=== PATIENT | male | born 1985 | race Caucasian/White ===

== ENCOUNTER 2017-08-17 07:44 | Emergency (ER) | payer SELFPAY ==
[~2017-08-17] VITALS: Ht 170.2 cm; Wt 72.5 kg
[2017-08-17 07:53] VITALS: BP 151/81; PULSE 90; RESP 18; TEMP 98; O2SAT 98
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
== END 2017-08-17 10:44 | disposition home or self-care (01) ==
LOC: NEPD 07:44
DX: M54.5 Low back pain (principal); M79.671 Pain in right foot; M79.672 Pain in left foot; Z72.0 Tobacco use; W19.XXXA Unspecified fall, initial encounter
CPT/HCPCS: 72100; 99283

== ENCOUNTER 2017-08-18 01:06 | Emergency (ER) | payer SELFPAY ==
[~2017-08-18] VITALS: Ht 175.3 cm; Wt 75.0 kg
[2017-08-18 01:08] VITALS: BP 108/81; PULSE 112; RESP 14; TEMP 98.4; O2SAT 91
[2017-08-18] MEDS ORDERED: SODIUM CHLOR 0.9% 1000 ML INJ 1,000 ML IV ONE ×2 (01:08→01:38)
--- NOTE | 2017-08-18 01:14 | PD ---
HPI Chief Complaint: OD/ Ingestion Time Seen by Provider: 01:07 Travel History International Travel<30 days: No Contact w/Intl Traveler<30days: No Traveled to known affect area: No History of Present Illness HPI The patient is a 31-year-old male who presents to the emergency department via EMS after a possible overdose in the restroom of a convenience store. According to EMS the patient was found unconscious on the bathroom floor of a convenience store. The patient was administered 4 mg of Narcan intranasally by police prior to EMS arrival. When EMS arrived they stated the patient was somewhat awake, but would not answer questions or follow commands. Upon arrival the patient is spontaneously breathing, does moan, repetitively states that he is cold, but refuses to answer questions in regards to events prior to arrival. He would not answer questions in regards to possible drug use prior to arrival. EMS does state that the patient's blood sugar prior to arrival was 400, upon arrival was 375. The patient denies any complaints but is a support and somewhat limited historian who does not cooperate with the exam or history. [facility] Past Medical History Medical History: Unable to Obtain Past Surgical History Surgical History: Unable to Obtain Social History Alcohol Use: Yes Tobacco Use: Yes Substance Use: Yes (heroin) Allergies-Medications (Allergen,Severity, Reaction): Coded Allergies: penicillin G (Unverified Allergy, Severe, 11/12/16) Reported Meds & Prescriptions Reported Meds & Active Scripts Active No Active Prescriptions or Reported Medications Review of Systems ROS Limitations: Clinical Condition, Poor Historian Except as stated in HPI: all other systems reviewed are Neg Neurologic: Positive: Change in Mentation Physical Exam Exam Limitations: Clinical Condition Narrative GENERAL: Will open eyes to pain, will repetitively state that he is cold, but refuses to answer questions. Nontoxic appearing. SKIN: Focused skin assessment warm/dry. Multiple tattoos noted. HEAD: Atraumatic. Normocephalic. EYES: Pupils equal and round. 4 mm bilateral and reactive. ENT: No nasal bleeding or discharge. Mucous membranes pink and moist. NECK: Trachea midline. No JVD. CARDIOVASCULAR: Regular, tachycardic with a heart rate of 110. RESPIRATORY: No accessory muscle use. Clear to auscultation. Breath sounds equal bilaterally. GASTROINTESTINAL: Abdomen soft, non-tender, nondistended. No rebound tenderness. MUSCULOSKELETAL: No obvious deformities. No clubbing. No cyanosis. No edema. NEUROLOGICAL: Lethargic, opens eyes to painful stimuli. Will state that he is cold, but will not answer questions. PSYCHIATRIC: Unable to obtain. Data Data Last Documented VS Vital Signs Date Time Temp Pulse Resp B/P (MAP) Pulse Ox O2 Delivery O2 Flow Rate FiO2 08/18/17 03:32 98.0 102 16 105/54 (71) 97 Room Air Orders Orders Electrocardiogram (08/18/17 01:08) Complete Blood Count With Diff (08/18/17 01:08) Comprehensive Metabolic Panel (08/18/17 01:08) Beta Hydroxybutyrate (Acetone) (08/18/17 01:08) Urinalysis - C+S If Indicated (08/18/17 01:08) Blood Gas Venous (Vbg) (08/18/17 01:08) Blood Glucose (08/18/17 01:08) Blood Glucose (08/18/17 02:08) Ecg Monitoring (08/18/17 01:08) Iv Access Insert/Monitor (08/18/17 01:08) Oximetry (08/18/17 01:08) NPO (08/18/17 01:08) Sodium Chlor 0.9% 1000 Ml Inj (Ns 1000 M (08/18/17 01:08) Sodium Chlor 0.9% 1000 Ml Inj (Ns 1000 M (08/18/17 01:38) Sodium Chloride 0.9% Flush (Ns Flush) (08/18/17 01:15) Alcohol (Ethanol) (08/18/17 01:08) Drug Screen, Random Urine (08/18/17 01:08) Tylenol (Acetaminophen) (08/18/17 01:08) Salicylates (Aspirin) (08/18/17 01:08) Cath For Specimen (08/18/17 01:39) Ed Discharge Order (08/18/17 06:01) Labs Laboratory Tests Test 08/18/17 01:13 08/18/17 01:15 08/18/17 02:00 Blood Gas Puncture Site IV Blood Gas Patient Temperature 98.6 Venous Blood pH 7.19 Venous Blood Partial Pressure CO2 67 mmHg Venous Blood Partial Pressure O2 25 mmHg Venous Blood HCO3 24 mmol/L Venous Blood Oxygen Saturation 34 % Venous Blood Oxygen Content 6.9 Vol % Venous Blood Base Excess -3.1 mmol/L Oxygen Delivery Device NASAL CANNULA Blood Gas Liter Flow 5 L/M White Blood Count 23.3 TH/MM3 Red Blood Count 4.80 MIL/MM3 Hemoglobin 15.0 GM/DL Hematocrit 45.0 % Mean Corpuscular Volume 93.8 FL Mean Corpuscular Hemoglobin 31.3 PG Mean Corpuscular Hemoglobin Concent 33.3 % Red Cell Distribution Width 14.0 % Platelet Count 250 TH/MM3 Mean Platelet Volume 8.0 FL Neutrophils (%) (Auto) 87.9 % Lymphocytes (%) (Auto) 6.5 % Monocytes (%) (Auto) 4.8 % Eosinophils (%) (Auto) 0.5 % Basophils (%) (Auto) 0.3 % Neutrophils # (Auto) 20.5 TH/MM3 Lymphocytes # (Auto) 1.5 TH/MM3 Monocytes # (Auto) 1.1 TH/MM3 Eosinophils # (Auto) 0.1 TH/MM3 Basophils # (Auto) 0.1 TH/MM3 CBC Comment DIFF FINAL Differential Comment Blood Urea Nitrogen 10 MG/DL Creatinine 1.21 MG/DL Random Glucose 341 MG/DL Total Protein 7.5 GM/DL Albumin 3.5 GM/DL Calcium Level 8.2 MG/DL Alkaline Phosphatase 69 U/L Aspartate Amino Transf (AST/SGOT) 93 U/L Alanine Aminotransferase (ALT/SGPT) 116 U/L Total Bilirubin 0.2 MG/DL Sodium Level 137 MEQ/L Potassium Level 4.8 MEQ/L Chloride Level 100 MEQ/L Carbon Dioxide Level 25.6 MEQ/L Anion Gap 11 MEQ/L Estimat Glomerular Filtration Rate 69 ML/MIN Salicylates Level LESS THAN 1.7 MG/DL Acetaminophen Level LESS THAN 2.0 MCG/ML Ethyl Alcohol Level LESS THAN 3 MG/DL B-Hydroxybutyrate 0.10 MMOL/L Urine Color LIGHT-YELLOW Urine Turbidity CLEAR Urine pH 5.0 Urine Specific [place] 1.015 Urine Protein TRACE mg/dL Urine Glucose (UA) 1000 mg/dL Urine Ketones NEG mg/dL Urine Occult Blood NEG Urine Nitrite NEG Urine Bilirubin NEG Urine Urobilinogen LESS THAN 2.0 MG/DL Urine Leukocyte Esterase NEG Urine RBC LESS THAN 1 /hpf Urine WBC 4 /hpf Urine Squamous Epithelial Cells 1 /hpf Urine Hyaline Casts 6 /lpf Urine Granular Casts 17 /lpf Urine Mucus FEW /lpf Microscopic Urinalysis Comment CULT NOT INDICATED Urine Opiates Screen NEG Urine Barbiturates Screen NEG Urine Amphetamines Screen POS Urine Benzodiazepines Screen NEG Urine Cocaine Screen POS Urine Cannabinoids Screen NEG MDM Medical Decision Making Medical Screen Exam Complete: Yes Emergency Medical Condition: Yes Medical Record Reviewed: Yes Interpretation(s) EKG reveals sinus tachycardia with a heart rate of 110. No ischemic changes noted. Laboratory Tests Test 08/18/17 01:13 08/18/17 01:15 08/18/17 02:00 Blood Gas Puncture Site IV Blood Gas Patient Temperature 98.6 Venous Blood pH 7.19 Venous Blood Partial Pressure CO2 67 mmHg Venous Blood Partial Pressure O2 25 mmHg Venous Blood HCO3 24 mmol/L Venous Blood Oxygen Saturation 34 % Venous Blood Oxygen Content 6.9 Vol % Venous Blood Base Excess -3.1 mmol/L Oxygen Delivery Device NASAL CANNULA Blood Gas Liter Flow 5 L/M White Blood Count 23.3 TH/MM3 Red Blood Count 4.80 MIL/MM3 Hemoglobin 15.0 GM/DL Hematocrit 45.0 % Mean Corpuscular Volume 93.8 FL Mean Corpuscular Hemoglobin 31.3 PG Mean Corpuscular Hemoglobin Concent 33.3 % Red Cell Distribution Width 14.0 % Platelet Count 250 TH/MM3 Mean Platelet Volume 8.0 FL Neutrophils (%) (Auto) 87.9 % Lymphocytes (%) (Auto) 6.5 % Monocytes (%) (Auto) 4.8 % Eosinophils (%) (Auto) 0.5 % Basophils (%) (Auto) 0.3 % Neutrophils # (Auto) 20.5 TH/MM3 Lymphocytes # (Auto) 1.5 TH/MM3 Monocytes # (Auto) 1.1 TH/MM3 Eosinophils # (Auto) 0.1 TH/MM3 Basophils # (Auto) 0.1 TH/MM3 CBC Comment DIFF FINAL Differential Comment Blood Urea Nitrogen 10 MG/DL Creatinine 1.21 MG/DL Random Glucose 341 MG/DL Total Protein 7.5 GM/DL Albumin 3.5 GM/DL Calcium Level 8.2 MG/DL Alkaline Phosphatase 69 U/L Aspartate Amino Transf (AST/SGOT) 93 U/L Alanine Aminotransferase (ALT/SGPT) 116 U/L Total Bilirubin 0.2 MG/DL Sodium Level 137 MEQ/L Potassium Level 4.8 MEQ/L Chloride Level 100 MEQ/L Carbon Dioxide Level 25.6 MEQ/L Anion Gap 11 MEQ/L Estimat Glomerular Filtration Rate 69 ML/MIN Salicylates Level LESS THAN 1.7 MG/DL Acetaminophen Level LESS THAN 2.0 MCG/ML Ethyl Alcohol Level LESS THAN 3 MG/DL B-Hydroxybutyrate 0.10 MMOL/L Urine Opiates Screen NEG Urine Barbiturates Screen NEG Urine Amphetamines Screen POS Urine Benzodiazepines Screen NEG Urine Cocaine Screen POS Urine Cannabinoids Screen NEG Differential Diagnosis Differential diagnosis includes DKA, metabolic encephalopathy, dehydration, acute kidney injury, heroin overdose, polysubstance abuse, alcohol abuse, alcohol intoxication, toxic encephalopathy. Narrative Course IV was established, labs were drawn and sent, and the patient was placed on cardiac telemetry monitoring and continuous pulse oximetry monitoring. EKG was ordered and interpreted. Bedside Accu-Chek was 375. Therefore, VBG was obtained and the patient was administered 2 L of IV fluids. Alcohol, tox screen , acetaminophen level, and salicylate level were sent to lab. VBG reveals acidosis with elevated PCO2, consistent with respiratory acidosis. Bicarbonate was normal. Complete metabolic profile reveals anion gap is normal, I doubt DKA with normal beta hydroxy and normal anion gap. The patient most likely had hypoxia from heroin overdose as he did respond to Narcan. The patient's repeat blood sugar at 2:20 AM was 117, elevated glucose may been a stress reaction from the overdose as he did have an elevated white count and elevated glucose that responded to IV fluids alone. The patient's tox screen was positive from cocaine and amphetamines. The patient was monitored in the emergency department. The patient was reevaluated at 6 AM, patient was awake, alert, and oriented. He was able to inflate to the bathroom. The patient will be discharged. Diagnosis Primary Impression: Polysubstance abuse Additional Impressions: Leukocytosis Qualified Codes: D72.829 - Elevated white blood cell count, unspecified Hyperglycemia Patient Instructions: General Instructions Additional Instructions: Stop using illicit drugs. Follow-up with a primary physician. Return if symptoms worsen or progress. Med/Other Pt SpecificInfo: No Change to Meds Scripts No Active Prescriptions or Reported Meds Disposition: DISCHARGE HOME Condition: Stable Refugio Pillai MD August 18, 2017 01:14
[2017-08-18] MEDS ORDERED: SODIUM CHLORIDE 0.9% FLUSH 10 ML FLUSH IVF PRN (01:15)
[2017-08-18 01:24] LABS: AUTOMATED NEUTROPHIL # 20.5 TH/MM3 (1.8-7.7); BASOPHIL # 0.1 TH/MM3 (0-0.2); BASOPHIL % 0.3 % (0.0-2.0); EOSINOPHIL # 0.1 TH/MM3 (0-0.4); EOSINOPHIL % 0.5 % (0.0-4.0); LYMPH % 6.5 % (9.0-44.0); LYMPHOCYTE # 1.5 TH/MM3 (1.0-4.8); MEAN CELL VOLUME 93.8 FL (80.0-100.0); MEAN CORPUSCULAR HEMOGLOBIN 31.3 PG (27.0-34.0); MEAN CORPUSCULAR HGB CONC 33.3 % (32.0-36.0); MONO % 4.8 % (0.0-8.0); MONOCYTE # 1.1 TH/MM3 (0-0.9); NEUT % 87.9 % (16.0-70.0); PLATELET COUNT 250 TH/MM3 (150-450); WHITE BLOOD COUNT 23.3 TH/MM3 (4.0-11.0)
[2017-08-18 01:35] VITALS: O2SAT 98
[2017-08-18 01:56] LABS: ALKALINE PHOSPHATASE 69 U/L (45-117); ALT (GPT) 116 U/L (12-78); TOTAL BILIRUBIN ADULT 0.2 MG/DL (0.2-1.0); TOTAL PROTEIN 7.5 GM/DL (6.4-8.2)
[2017-08-18 02:09] LABS: ALBUMIN 3.5 GM/DL (3.4-5.0); AST (GOT) 93 U/L (15-37); BICARBONATE 25.6 MEQ/L (21.0-32.0); BLOOD UREA NITROGEN 10 MG/DL (7-18); CALCIUM 8.2 MG/DL (8.5-10.1); CHLORIDE 100 MEQ/L (98-107); CREATININE 1.21 MG/DL (0.60-1.30); GLOMERULAR FILTRATION RATE 69 ML/MIN (>89); GLUCOSE,RANDOM 341 MG/DL (74-106); SODIUM (NA) 137 MEQ/L (136-145)
[2017-08-18 02:10] LABS: ACETAMINOPHEN LESS THAN 2.0 MCG/ML (10.0-30.0)
[2017-08-18 02:30] LABS: BILIRUBIN, URINE NEG (NEG); BLOOD, URINE NEG (NEG); GLUCOSE,URINE 1000 mg/dL (NEG); HYALINE CAST, URINE 6 /lpf (RARE); KETONE, URINE NEG (NEG); MUCUS URINE FEW /lpf (OCC); NITRITE,URINE NEG (NEG); SQUAMOUS EPITHELIAL CELL URINE 1 /hpf (0-5); URINE COLOR LIGHT-YELLOW (YELLW/STRAW); URINE LEUKOCYTE ESTERASE NEG (NEG)
[2017-08-18 03:32] VITALS: BP 105/54; PULSE 102; RESP 16; TEMP 98; O2SAT 97
--- NOTE | 2017-08-18 08:01 | EKG ---
Date Performed: 08/18/2017 Time Performed: 01:20:31 PTAGE: 31 years EKG: SINUS TACHYCARDIA ABNORMAL RHYTHM ECG PREVIOUS TRACING : 08/16/2015 10.05 No significant change from previous tracing noted. DOCTOR: Jose Luis Mackey Interpretating Date/Time 08/18/2017 07:59:39
== END 2017-08-18 06:34 | disposition home or self-care (01) ==
LOC: NEPC 01:06
DX: F19.10 Other psychoactive substance abuse, uncomplicated (principal); D72.829 Elevated white blood cell count, unspecified; R73.9 Hyperglycemia, unspecified; R00.0 Tachycardia, unspecified; Z72.0 Tobacco use
CPT/HCPCS: 80053; 80307; 81001; 82010; 82805; 85025; 93005; 99284; J7030